=== PATIENT | female | born 1960 | race Caucasian/White ===

== ENCOUNTER → 2018-02-03 | Outpatient (CLI) | payer OTHER ==
--- NOTE | 2018-02-03 12:57 | XR ---
EXAMINATION TYPE: XR shoulder complete LT DATE OF EXAM: 02/03/2018 CLINICAL HISTORY: pain COMPARISON: NONE TECHNIQUE: Three views of the left shoulder are obtained. FINDINGS: There is no acute fracture/dislocation evident. Calcific tendinopathy supraspinatus tendon . The acromioclavicular and glenohumeral joint spaces appear within normal limits. The visualized ri bs are intact and unremarkable. IMPRESSION: 1. There is no acute fracture or dislocation. ICD 10 NO FRACTURE, INITIAL EVALUATION
== END | disposition home or self-care (01) ==
LOC: RADXRMAIN 12:17
PROVIDERS: ATTEND Family Medicine
DX: M25.512 Pain in left shoulder (principal)

== ENCOUNTER → 2019-04-10 | Outpatient (CLI) | payer OTHER ==
--- NOTE | 2019-04-10 15:06 | XR ---
EXAMINATION TYPE: XR clavicle RT DATE OF EXAM: 04/10/2019 COMPARISON: NONE HISTORY: Right clavicle pain for one month with no known injury. Lump of the sternoclavicular joint. TECHNIQUE: 2 views of the right clavicle were obtained. FINDINGS: No acute fracture or dislocation is seen in the right clavicle. No suspicious osseous lesio n. Mild acromioclavicular arthropathy is present as there is capsular hypertrophy and small marginal osteophytes. Visualized right ribs appear intact and unremarkable. IMPRESSION: No acute fracture or malalignment of the clavicle or acromioclavicular joint. Mild acromi oclavicular arthropathy.
--- NOTE | 2019-04-10 15:09 | XR ---
EXAMINATION TYPE: XR shoulder complete RT DATE OF EXAM: 04/10/2019 CLINICAL HISTORY: Right shoulder pain for one month with no known injury. TECHNIQUE: Three views of the right shoulder are obtained. COMPARISON: None. FINDINGS: There is no acute fracture/dislocation evident in the right shoulder. The acromioclavicul ar and glenohumeral joint spaces appear aligned. Mild acromioclavicular arthropathy is present as the re is capsular hypertrophy and small marginal osteophytes. The visualized ribs are intact and unrema rkable. IMPRESSION: There is no acute fracture or dislocation in the right shoulder. Mild acromioclavicular arthropathy in the right.
== END | disposition home or self-care (01) ==
LOC: RADXRMAIN 14:18
PROVIDERS: ATTEND Family Medicine
DX: M19.011 Primary osteoarthritis, right shoulder (principal)